=== PATIENT | female | born 1950 | race Asian ===

== ENCOUNTER 2018-12-18 14:47 | Inpatient (IN) | payer OTHER, MEDICARE ==
[~2018-12-18] VITALS: Ht 152.4 cm; Wt 61.3 kg
[~2018-12-18 14:47] MED LIST: ASPIR 8181 MG PO; CIPRO500 MG PO; LAC PO; LANTUS100 U/ML SC; METFORMIN HCL850 MG PO; NPHOS PO; OYSCO 500500 M1 PO; SIMVASTATIN20 M1 PO; VITAMIN-D1000 IU PO; ZESTRIL20 MG PO
[2018-12-18 14:56] VITALS: Ht 152.4 cm; Wt 61.3 kg
[2018-12-18 16:00] LABS: BASOPHIL % 0.3 % (0-2); RED CELL DISTRIBUTION WIDTH 13.4 % (11.5-14.5)
[2018-12-18 16:01] LABS: CALCIUM 9.9 mg/dL (8.5-10.1); CARBON DIOXIDE 29.4 mmol/L (21-32); CREATININE SERUM 1.6 mg/dL (0.6-1.0); PLATELET COUNT 419 x10^3mcL (130-400)
[2018-12-18 16:06] LABS: BILIRUBIN TOTAL 0.32 mg/dL (0.20-1.00)
[2018-12-18 16:21] LABS: ALBUMIN 2.9 g/dL (3.4-5.0); TOTAL PROTEIN, SERUM 8.6 g/dL (6.4-8.2)
[2018-12-18] MEDS ORDERED: SIMVASTATIN10 M1 PO (18:32)
[2018-12-18] MEDS ORDERED: LEVEMIR100 U/M1 SC (18:32)
[2018-12-18] MEDS ORDERED: DIOVAN320 MG PO (18:32)
[2018-12-18] MEDS ORDERED: ASPIR 8181 MG PO (18:32)
[2018-12-18] MEDS ORDERED: METFORMIN HYDR500 M1 PO (18:33)
[2018-12-18 18:47] LABS: CHOLESTEROL/HDL RATIO 2.8; MAGNESIUM 1.3 mg/dL (1.8-2.4)
[2018-12-18 19:01] VITALS: BP 150/71
[2018-12-18 20:43] VITALS: BP 155/64
[2018-12-18 21:49] VITALS: BP 155/64
[2018-12-19 05:31] VITALS: BP 153/72
[2018-12-19 06:40] LABS: BASOPHIL % 0.2 % (0-2); RED CELL DISTRIBUTION WIDTH 13.4 % (11.5-14.5)
[2018-12-19 06:41] LABS: CALCIUM 9.5 mg/dL (8.5-10.1); CARBON DIOXIDE 27.3 mmol/L (21-32); MAGNESIUM 1.7 mg/dL (1.8-2.4); PHOSPHOROUS 2.9 mg/dL (2.5-4.9); POTASSIUM SERUM 4.4 mmol/L (3.5-5.1)
[2018-12-19 06:42] LABS: microscopic required? NO
[2018-12-19 07:17] LABS: PLATELET COUNT 415 x10^3mcL (130-400)
[2018-12-19 07:33] LABS: AMPHETAMINE QUAL UR NONE DETECTED (See below)
[2018-12-19 08:26] LABS: urine erythrocyte NEGATIVE (NEGATIVE)
[2018-12-19 09:28] VITALS: BP 141/69
[2018-12-19] MEDS ORDERED: GLU500 PO (13:36)
[2018-12-19 16:53] VITALS: BP 141/69
[2018-12-19] MEDS ORDERED: LEVEMIR100 U/M1 SC ×2 (17:23→17:47)
== END 2018-12-19 18:05 | disposition home or self-care (01) | DRG 384 ==
LOC: ED 14:47 → MU 17:38
PROVIDERS: Emergency Medicine; ADMIT Family Medicine
DX: S80.02XA Contusion of left knee, initial encounter (principal); N17.0 Acute kidney failure with tubular necrosis; E11.65 Type 2 diabetes mellitus with hyperglycemia; E44.0 Moderate protein-calorie malnutrition; E11.9 Type 2 diabetes mellitus without complications; D64.9 Anemia, unspecified; I10 Essential (primary) hypertension; E83.42 Hypomagnesemia; E78.00 Pure hypercholesterolemia, unspecified; E86.0 Dehydration; E87.1 Hypo-osmolality and hyponatremia; S80.01XA Contusion of right knee, initial encounter; W01.0XXA Fall on same level from slipping, tripping and stumbling without subsequent striking against object, initial encounter; Y93.A1 Activity, exercise machines primarily for cardiorespiratory conditioning; Z83.3 Family history of diabetes mellitus; Y92.89 Other specified places as the place of occurrence of the external cause; Y99.8 Other external cause status; Z23 Encounter for immunization
CPT/HCPCS: 82962; 83880; 87804; 90658; 90732; 97116-GP; J1815; J1940; J3475; J7030; Q0092